=== PATIENT | male | born 1960 | race Two or more races ===

== ENCOUNTER 2019-03-27 00:46 | Emergency (ER) | payer MEDICAID, OTHER ==
[~2019-03-27] VITALS: Ht 177.8 cm; Wt 59.0 kg
--- NOTE | 2019-03-27 01:00 | NUR ---
PT WAS DISCHARGED FROM [facility] EARLIER TONIGHT AND TO BE DROPPED OFF AT [facility]. PER LUZ ELENA EMT, WHILE GIVING REPORT TO NURSE FROM [facility] HE WAS INFORMED BY STAFF VENTILLATOR IS MALFUNCTIONING AND THEY ARE UNABLE TO ACCEPT THE PT. CALLED [facility] AND SPOKE WITH JEWELS DOWD. PER NOEMÍ, WILL NOT BE ABLE TO FIX VENTILLATOR TONIGHT AND WILL HAVE TO SPEAK WITH ADMINISTRATION IN THE MORNING REGARDING PLACEMENT.
--- NOTE | 2019-03-27 01:05 | NUR ---
RT NOTE PATIENT RECEIVED TRACHED ON TRANSPORT VENTILATOR. AWAKE/ALERT. PLACED PATIENT ON HOSPITAL VENTILATOR WITH SETTINGS OF AC 12, 450, +5, 50%. PERC [address] AND SECURED[address] RHONCHI B/S NOTED BILATERALLY. SX DONE, TRACH IS PATENT. VENT PLUGGED TO RED OUTLET. ALARMS ON AND AUDIBLE. PULSE OX CONNECTED ON PATIENT'S LEFT EAR. WILL CONTINUE TO MONITOR.
[2019-03-27 01:44] LABS: BASOPHILS % (AUTO) 0.2 % (0.0-2.0); EOSINOPHILS % (AUTO) 0.8 % (0.0-6.0); HEMATOCRIT 34 % (39-51); HEMOGLOBIN 11.3 g/dL (13.5-17.5); LYMPHOCYTES # (AUTO) 0.6 /CMM (0.8-4.8); LYMPHOCYTES % (AUTO) 3.1 % (20.0-44.0); MEAN CORPUSCULAR HGB CONC 33 g/dl (31.0-36.0); MEAN CORPUSCULAR VOLUME 92 fL (80-96); MONOCYTES % (AUTO) 5.7 % (2.0-12.0); NEUTROPHILS % (AUTO) 90.2 % (43.0-81.0); PLATELET COUNT (AUTO) 467 /CMM (150-450); RED BLOOD CELL COUNT(AUTO) 3.72 MIL/uL (4.5-6.0); WHITE BLOOD COUNT (AUTO) 17.7 K/uL (4.3-11.0)
[2019-03-27 01:50] LABS: CREATININE 1.6 mg/dL (0.6-1.3); POTASSIUM 3.8 mmol/L (3.5-5.1)
--- NOTE | 2019-03-27 01:50 | NUR ---
RT AT THE BED SIDE FOR ABG DRAW
[2019-03-27 02:00] LABS: ABG BASE EXCESS -3.7 mmol/L; ABG OXYGEN SATURATION 89.3 % (92.0-98.5); ABG PCO2 38.3 mmHg (35.0-45.0); ABG PH 7.363 (7.350-7.450); ABG PO2 57.4 mmHg (75.0-100.0); COHb 0.9 % (0.5-1.5); MetHb 0.2 % (0.0-1.5); O2Hb 88.3 % (94.0-97.0); SITE, ABG Right Radial
--- NOTE | 2019-03-27 02:19 | NUR ---
GT CONNECTED TO THE INTERMITTENT LOW SUCTIONING DUE TO ABD DISTENTION PER MD'S ORDER.
[2019-03-27] MEDS ORDERED: PIPERACILLIN /TAZOBACTAM 3.375 G in IV D5W 50 ML IV ONE (07:00)
[2019-03-27] MEDS ORDERED: VANCOMYCIN 1 GM in IV D5W 250 ML IV ONE (07:00)
--- NOTE | 2019-03-27 07:20 | NUR ---
iv 20g started on R foot w/ DR. Romero's approval. blood cultures and lactic acid was drawn.
--- NOTE | 2019-03-27 07:35 | NUR ---
REPORT RECEIVED FROM [facility] DONIS FOR [facility]
--- NOTE | 2019-03-27 07:36 | NUR ---
PT IN BED, AWAKE, HOOKED TO MONITOR, CONNECTED TO VENT VIA TRACHEOSTOMY W SETTINGS OF PEEP 5, VT 450, FIO2 60%, RATE 12.
--- NOTE | 2019-03-27 07:47 | NUR ---
RT AT BEDSIDE, CHANGED VENT SETTINGS. FIO2 AT 50%, PATIENT'S O2 SAT @ 95%
--- NOTE | 2019-03-27 08:20 | NUR ---
RT AT BEDSIDE FOR SUCTION OF TRACH, ALSO CHANGED VENT SETTINGS OF FIO2 AT 40%, PT O2 SATURATION AT 89%, MD AWARE. WILL CONTINUE TO MONITOR ORDERED.
--- NOTE | 2019-03-27 08:25 | NUR ---
FI02 DECREASED TO 40%, O2SAT DROPPED TO 88% PROMPTING TYREE RT TO BRING IT UP TO 60% AGAIN
--- NOTE | 2019-03-27 09:06 | NUR ---
RT AT BEDSIDE, CHANGED VENT SETTING OF FIO2 AT 50%, PT TOLARATING WELL WITH O2 SATURATION OF 97%
--- NOTE | 2019-03-27 11:00 | NUR ---
RT AT BEDSIDE, CHANGED FIO2 TO 40%. PT TOLERATING WELL AT 96% O2 SATURATION
--- NOTE | 2019-03-27 12:36 | NUR ---
PT GOING TO [facility] ROOM 529, CALL [phone] FOR REPORT.
--- NOTE | 2019-03-27 12:47 | NUR ---
CALLED [facility] WITH RT TRANSPORT TO [facility]; [id number], TRIP #[phone]
--- NOTE | 2019-03-27 12:52 | NUR ---
REPORT GIVEN TO [facility] DONIS [facility]
--- NOTE | 2019-03-27 14:14 | NUR ---
CALL FROM [facility], ETA 1630,WAITING ON RN/RT
[2019-03-27 16:21] VITALS: BP 143/74
--- NOTE | 2019-03-27 16:22 | NUR ---
Patient discharged to [facility] in stable condition. Written and verbal after care instructions given. Family verbalizes understanding of instruction. Patient will be transferred to [facility]
== END 2019-03-27 16:24 | disposition short-term general hospital (02) ==
LOC: ER 00:51 → UNDOADMIN 08:42 → ICU 08:42 → ER 16:24
DX: J96.91 Respiratory failure, unspecified with hypoxia (principal); Z99.11 Dependence on respirator [ventilator] status; I48.91 Unspecified atrial fibrillation; I12.0 Hypertensive chronic kidney disease with stage 5 chronic kidney disease or end stage renal disease; E11.22 Type 2 diabetes mellitus with diabetic chronic kidney disease; N18.6 End stage renal disease; D64.9 Anemia, unspecified; Z99.2 Dependence on renal dialysis; Z93.1 Gastrostomy status; Z98.890 Other specified postprocedural states
CPT/HCPCS: 31720; 36415; 36600 ×2; 71045; 80048; 82803; 83605; 85025; 87040 ×2; 96365; 96367; 99291; J2543; J3370; J7060 ×2